=== PATIENT | male | born 1980 | race Caucasian/White ===

== ENCOUNTER 2019-01-26 05:58 | Emergency (ER) | payer OTHER ==
--- NOTE | 2019-01-26 06:20 | EDM.PDOC ---
<Samy Beltrán - Last Filed: 01/26/19 06:50> ED HPI GENERAL MEDICAL PROBLEM - General Chief Complaint: Abdominal Pain Stated Complaint: ABDOMINAL PAIN 3DAYS UNABLE TO KEEP DOWN FOOD Time Seen by Provider: 01/26/19 06:14 Source of Information: Reports: Patient History Limitations: Reports: No Limitations - History of Present Illness INITIAL COMMENTS - FREE TEXT/NARRATIVE: 38-year-old male presents the ED with a 3 day history of persistent left upper quadrant abdominal pain. States the pain is constant at a 3 out of 10. No associated fever chills. Nausea and vomiting starting 2 days ago. He states he still voiding fairly regular. K keep down water over the last 12 hours. No solids for over 3 days. Was lightheaded dizzy. Unable to sleep due to the discomfort of the pain. Pain does not radiate into his back. Not made worse by deep breathing. No previous abdominal surgery. Patient still is passing flatus per rectum. No bowel movement for the last 2 and half days. Emesis contained food products eaten initially and now is just bilious. He did take a lot of Pepto-Bismol heavily 15 mils every half hour 3 days ago with no relief. He has taken some Aleve with no relief in the last 12 hours. Onset: Sudden Onset Date: 01/23/19 Duration: Day(s): (3 days of illness.), Constant (Reports the pain is constant and not worse than it was when it came on.) Location: Reports: Abdomen (Left upper quadrant of the abdomen primarily.) Quality: Reports: Ache (Scribe is a deep dull aching pain without any colicky component. Occasional sharp stabbing pain.), Sharp, Stabbing Severity: Moderate (Occasional. 3 out of 10.) Improves with: Reports: None Worsens with: Reports: None Context: Denies: Activity, Exercise, Lifting, Sick Contact, Trauma, Other Associated Symptoms: Reports: Loss of Appetite, Malaise, Nausea/Vomiting, Weakness. 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 (Naprosyn with no relief.) Left Middle Abdomen Pain Score (Numeric/FACES): 3 - Related Data Allergies Allergy/AdvReac Type Severity Reaction Status Date / Time No Known Allergies Allergy Verified 01/26/19 06:04 Home Meds: Home Meds Lisinopril 5 mg PO DAILY 01/26/19 [History] Ondansetron [Zofran ODT] 1 tab PO Q8H PRN #10 tab.dis 01/26/19 [Rx] amLODIPine Besylate [Norvasc] 10 mg PO DAILY 01/26/19 [History] Past Medical History HEENT History: Reports: Impaired Vision Cardiovascular History: Reports: Hypertension Respiratory History: Reports: Pneumothorax Social & Family History - Tobacco Use Smoking Status *Q: Current Every Day Smoker Years of Tobacco use: 15 Packs/Tins Daily: 0.2 - Caffeine Use Caffeine Use: Reports: Coffee - Recreational Drug Use Recreational Drug Use: No - Living Situation & Occupation Occupation: Employed ED ROS GENERAL - Review of Systems Review Of Systems: See Below Constitutional: Reports: Malaise, Weakness, Fatigue (From not being able to sleep well the last 2 and half days.), Decreased Appetite (. To starting to be able to keep down some water the last 12 hours.). Denies: Fever, Chills HEENT: Reports: No Symptoms Respiratory: Reports: No Symptoms. Denies: Shortness of Breath, Wheezing, Pleuritic Chest Pain, Cough Cardiovascular: Reports: Blood Pressure Problem, Lightheadedness. Denies: Chest Pain, Claudication (Chronic hypertension.), Dyspnea on Exertion, Edema, Orthopnea, Palpitations Endocrine: Reports: Fatigue GI/Abdominal: Reports: Abdominal Pain (Persistent aching pain in his left upper quadrant abdomen makes it difficult to find a comfortable position. Pain is constant and nothing he has taken his seem to make any difference.), Constipation, Nausea (No bowel movement for the last 2-1/2 days.), Vomiting ( Nausea and vomiting for 2 days. Remains nauseated but has not vomited for the last 12 hours.) : Reports: No Symptoms Musculoskeletal: Reports: No Symptoms. Denies: Neck Pain, Shoulder Pain, Arm Pain, Back Pain Skin: Reports: No Symptoms Neurological: Reports: Dizziness, Weakness. Denies: Paresthesia, Pre-Existing Deficit, Seizure, Syncope, Trouble Speaking, Difficulty Walking, Change in Speech, Gait Disturbance Psychiatric: Denies: No Symptoms Hematologic/Lymphatic: Reports: No Symptoms Immunologic: Reports: No Symptoms ED EXAM, GI/ABD - Physical Exam Exam: See Below Exam Limited By: No Limitations General Appearance: Alert, WD/WN, No Apparent Distress, Other (Afebrile. Heart rate 82 and sinus respiratory of 18. He is hypertensive initially with a BP of 160 01/29/06. He states he doesn't think his blood pressure medicines of stay down the last 2 days.) Eyes: Bilateral: Normal Appearance (No scleral icterus.) Throat/Mouth: Normal Inspection (Tongue remains moist.), Normal Lips, Normal Oropharynx, Other Head: Atraumatic, Normocephalic Neck: Normal Inspection, Supple, Non-Tender, Full Range of Motion Respiratory/Chest: No Respiratory Distress, Lungs Clear, Normal Breath Sounds, No Accessory Muscle Use Cardiovascular: Normal Peripheral Pulses, Regular Rate, Rhythm, No Edema, No Gallop, No Murmur, No Rub GI/Abdominal Exam: Soft, Distended (Mild tympany upper abdomen. Pockets of air) , Tender (Mild tenderness on deep palpation left upper quadrant of the abdomen.) , Abnormal Bowel Sounds (Bowel sounds are hyperactive in all 4 quadrants with gurgling), Other (No surgical scars. Clinically has a benign abdomen with no peritoneal signs.). No: Normal Bowel Sounds, Guarding, Rigid, Rebound (Male) Exam: No Hernia ( lower abdomen.) Back Exam: Normal Inspection, Full Range of Motion. No: CVA Tenderness (L), CVA Tenderness (R) Extremities: Normal Inspection, Normal Range of Motion, Non-Tender Neurological: Alert, Oriented, CN II-XII Intact, Normal Cognition Psychiatric: Normal Affect, Normal Mood, Other Skin Exam: Warm, Dry, Intact, Normal Color, No Rash Course - Vital Signs Last Recorded V/S: Last Vital Signs Temp 36.1 C 01/26/19 06:05 Pulse 82 01/26/19 06:05 Resp 18 01/26/19 06:05 BP 167/106 H 01/26/19 06:05 Pulse Ox 97 01/26/19 06:05 Orthostatic Blood Pressure [ 137/82 Standing] Orthostatic Blood Pressure [ 146/94 Sitting] Orthostatic Blood Pressure [ 149/90 Supine] - Orders/Labs/Meds Orders: Active Orders 24 hr Category Date Time Status Orthostatic Vital Signs [RC] STAT Care 06/28/19 07:58 Active Abdomen 1V Flat [CR] Stat Exams 01/26/19 06:22 Taken Dextrose 5%-Lactated Ringers 1,000 ml Med 01/26/19 06:30 Active IV ASDIRECTED Medication Orders Dextrose/Lactated Ringer's (Dextrose 5%-Lactated Ringers) 1,000 mls @ 999 mls/ hr IV ASDIRECTED GUS Last Admin: 01/26/19 06:27 Dose: 999 mls/hr Labs: Laboratory Tests 01/26/19 01/26/19 01/26/19 Range/Units 06:24 06:25 06:25 WBC 8.97 (4.23-9.07) K/mm3 RBC 5.75 (4.63-6.08) M/mm3 Hgb 17.5 (13.7-17.5) gm/L Hct 51.3 H (40.1-51.0) % MCV 89.2 (79.0-92.2) fl MCH 30.4 (25.7-32.2) pg MCHC 34.1 (32.2-35.5) g/dl RDW Std Deviation 42.2 (35.1-43.9) fL Plt Count 322 (163-337) K/mm3 MPV 10.0 (9.4-12.3) fl Neutrophils % (Manual) 54 (40-60) % Band Neutrophils % 0 (0-10) % Lymphocytes % (Manual) 32 (20-40) % Atypical Lymphs % 0 % Monocytes % (Manual) 13 H (2-10) % Eosinophils % (Manual) 1 (0.8-7.0) % Basophils % (Manual) 0 L (0.2-1.2) Platelet Estimate Adequate RBC Morph Comment Normal Sodium 137 (136-145) mEq/L Potassium 4.2 (3.5-5.1) mEq/L Chloride 101 (98-107) mEq/L Carbon Dioxide 27 (21-32) mEq/L Anion Gap 13.2 (5-15) BUN 13 (7-18) mg/dL Creatinine 0.8 (0.7-1.3) mg/dL Est Cr Clr Drug Dosing 159.33 mL/min Estimated GFR (MDRD) > 60 (>60) mL/min BUN/Creatinine Ratio 16.3 (14-18) Glucose 108 H (74-106) mg/dL Lactic Acid (0.4-2.0) mmol/L Calcium 10.0 (8.5-10.1) mg/dL Total Bilirubin 0.4 (0.2-1.0) mg/dL AST 33 (15-37) U/L ALT 116 H (16-63) U/L Alkaline Phosphatase 94 (46-116) U/L C-Reactive Protein 0.3 (<1.0) mg/dL Total Protein 8.2 (6.4-8.2) g/dl Albumin 4.3 (3.4-5.0) g/dl Globulin 3.9 gm/dL Albumin/Globulin Ratio 1.1 (1-2) Lipase 161 (73-393) U/L Urine Color Yellow (Yellow) Urine Appearance Slt cloudy H (Clear) Urine pH 7.0 (5.0-8.0) Ur Specific Woodrow 1.020 (1.005-1.030) Urine Protein Trace H (Negative) Urine Glucose (UA) Negative (Negative) Urine Ketones Negative (Negative) Urine Occult Blood Negative (Negative) Urine Nitrite Negative (Negative) Urine Bilirubin Negative (Negative) Urine Urobilinogen 0.2 (0.2-1.0) Ur Leukocyte Esterase Negative (Negative) Urine RBC Not seen (0-5) /hpf Urine WBC Not seen (0-5) /hpf Ur Squamous Epith Cells Not seen (0-5) /hpf Urine Bacteria Few (FEW) /hpf Urine Mucus Not seen (FEW) /hpf Ketones (0.0-0.3) mM 01/26/19 01/26/19 Range/Units 06:25 06:54 WBC (4.23-9.07) K/mm3 RBC (4.63-6.08) M/mm3 Hgb (13.7-17.5) gm/L Hct (40.1-51.0) % MCV (79.0-92.2) fl MCH (25.7-32.2) pg MCHC (32.2-35.5) g/dl RDW Std Deviation (35.1-43.9) fL Plt Count (163-337) K/mm3 MPV (9.4-12.3) fl Neutrophils % (Manual) (40-60) % Band Neutrophils % (0-10) % Lymphocytes % (Manual) (20-40) % Atypical Lymphs % % Monocytes % (Manual) (2-10) % Eosinophils % (Manual) (0.8-7.0) % Basophils % (Manual) (0.2-1.2) Platelet Estimate RBC Morph Comment Sodium (136-145) mEq/L Potassium (3.5-5.1) mEq/L Chloride (98-107) mEq/L Carbon Dioxide (21-32) mEq/L Anion Gap (5-15) BUN (7-18) mg/dL Creatinine (0.7-1.3) mg/dL Est Cr Clr Drug Dosing mL/min Estimated GFR (MDRD) (>60) mL/min BUN/Creatinine Ratio (14-18) Glucose (74-106) mg/dL Lactic Acid 1.4 (0.4-2.0) mmol/L Calcium (8.5-10.1) mg/dL Total Bilirubin (0.2-1.0) mg/dL AST (15-37) U/L ALT (16-63) U/L Alkaline Phosphatase (46-116) U/L C-Reactive Protein (<1.0) mg/dL Total Protein (6.4-8.2) g/dl Albumin (3.4-5.0) g/dl Globulin gm/dL Albumin/Globulin Ratio (1-2) Lipase (73-393) U/L Urine Color (Yellow) Urine Appearance (Clear) Urine pH (5.0-8.0) Ur Specific Woodrow (1.005-1.030) Urine Protein (Negative) Urine Glucose (UA) (Negative) Urine Ketones (Negative) Urine Occult Blood (Negative) Urine Nitrite (Negative) Urine Bilirubin (Negative) Urine Urobilinogen (0.2-1.0) Ur Leukocyte Esterase (Negative) Urine RBC (0-5) /hpf Urine WBC (0-5) /hpf Ur Squamous Epith Cells (0-5) /hpf Urine Bacteria (FEW) /hpf Urine Mucus (FEW) /hpf Ketones 0.22 (0.0-0.3) mM Meds: Medications Generic Name Dose Route Start Last Admin Trade Name Freq PRN Reason Stop Dose Admin Dextrose/Lactated Ringer's 1,000 mls @ 999 mls/hr 01/26/19 06:30 01/26/19 06: 27 Dextrose 5%-Lactated Ringers IV 999 mls/hr ASDIRECTED GUS Administration Discontinued Medications Generic Name Dose Route Start Last Admin Trade Name Cuate PRN Reason Stop Dose Admin Hydromorphone HCl 0.5 mg 01/26/19 06:21 01/26/19 06:27 Dilaudid IVPUSH 01/26/19 06:22 0.5 mg ONETIME ONE Administration Metoclopramide HCl 10 mg 01/26/19 06:21 01/26/19 06:27 Reglan IVPUSH 01/26/19 06:22 10 mg ONETIME ONE Administration - Radiology Interpretation Free Text/Narrative:: 38-year-old male presents to the ED complaining of constant left upper quadrant abdominal pain not radiating into his back for the last 3 days. Associated onset of nausea and vomiting on the first day of illness and persisting up until 12 hours ago. Since then he's been able to keep down some clear fluids and water. He states pain is bad enough that it interferes with his sleep. States the pain is constant no colicky component. Occasional pain is sharp and stabbing however. Pain has remained the same and he grades at 3 out of 10 since onset 3 days ago. Emesis initially was food that he had eaten in the previous 12 hours. Subsequently emesis was bilious without blood. No bowel movement for about 2 and half days. Still passing flatus. Examination reveals very active bowel sounds in all 4 quadrants with tympanitic to percussion the upper abdomen particularly. He does feel mildly bloated. Clinically has a benign abdomen. Does not appear to be significantly volume depleted. No ketones on his breath. No genitourinary symptoms. Afebrile without any chills. Plan IV D5 Ringer's lactate at open. Given Dilaudid 0.5 mg IV with Reglan 10 mg IV. Routine labs including serum lipase and lactic acid to be done. One view of the abdomen to be done. - Re-Assessments/Exams Free Text/Narrative Re-Assessment/Exam: 01/26/19 06:50 KUB completed. Reveals increased stool throughout the transverse colon and splenic flexure. Scattered stool in the descending colon and plenty of stool in the rectal vault with surrounding air. No signs of any bowel obstruction. 01/26/19 06:59 care will be transferred to Dr. Martinez as it is change of shift. Are pending as is the full urinalysis. Departure - Departure Disposition: Home, Self-Care 01 Clinical Impression: Constipation - Discharge Information Referrals: PCP,None [Primary Care Provider] - Forms: ED Department Discharge Additional Instructions: You were seen in the emergency room for 3 days of persistent left upper abdominal pain, along with nausea and vomiting. Workup in the ER included blood work, positional blood pressure checks, and an abdominal x-ray. Your x-ray found a considerable amount of stool backed up in your transverse colon, as well as in your rectum. This is likely the cause of your symptoms. Your blood work was unremarkable. There is no sign of an infection, and you have not suffered any significant fluid or electrolyte abnormalities. As discussed, we recommend that you try some [id number] enemas to relieve yourself of your current constipation. Mineral oil enemas are probably best, but other options include saline and Phospho-Soda enemas. In addition to enemas, you may also want to try some oral magnesium citrate. If so, we would recommend that you drink only half a bottle, wait to see if it helps, before drinking the second half. We recommend that you STOP taking Pepto-Bismol. In order to prevent constipation in the future, we recommend that you take an oral bulk fiber, such as Metamucil, with plenty of water. If any other problems, please do not hesitate to return to the ER. - My Orders Last 24 Hours: My Active Orders 01/26/19 07:58 Orthostatic Vital Signs [RC] STAT - Assessment/Plan Last 24 Hours: My Active Orders 01/26/19 07:58 Orthostatic Vital Signs [RC] STAT <Mt Martinez - Last Filed: 01/26/19 08:35> Course - Re-Assessments/Exams Free Text/Narrative Re-Assessment/Exam: 01/26/19 08:[address] Beltrán. The 1 L of IV fluid that was ordered by Dr. Beltrán has finished infusing. I have the nurse check orthostatics, and the patient is not orthostatic. That does not mean that he is completely fluid replenished; he likely is not, however , additional IV fluid is not necessary. 01/26/19 08:18 The patient's CBC is remarkable for a hematocrit mildly elevated at 51.3, with the remainder of the CBC being normal. His CMP is remarkable for blood glucose slightly elevated at 108, and an ALT mildly elevated at 116, with the remainder of the CMP being normal. His lipase level is within normal limits at 161. His lactic acid level is within normal limits at 1.4. His CRP is within normal limits at 0.3. His ketones are within normal limits at 0.22. His urinalysis is completely normal. Based on his history, physical exam, blood work, and abdominal x-ray, the patient's left upper quadrant abdominal pain is most likely due to constipation. I'm going to recommend that he use some [id number] enemas to clean himself out. He could also try some magnesium citrate if he does not get complete relief. He should stop taking Pepto-Bismol. To prevent constipation in the future, he should start drinking bulk fiber, such as Metamucil, with plenty of water. 01/26/19 08:26 The above was discussed with the patient. I recommended mineral oil enemas +/- magnesium citrate. I will also prescribe Zofran ODT although the patient states that he has not been feeling nauseated this morning. Departure - Departure Time of Disposition: 08:27 Condition: Good - Discharge Information *PRESCRIPTION DRUG MONITORING PROGRAM REVIEWED*: Not Applicable *COPY OF PRESCRIPTION DRUG MONITORING REPORT IN PATIENT MARCELLO: Not Applicable
[2019-01-26] MEDS ORDERED: Metoclopramide 10 MG/2 ML SDV IVPUSH ONE (06:21)
[2019-01-26] MEDS ORDERED: HYDROmorphone 0.5 MG/0.5 ML Syringe IVPUSH ONE (06:21)
[2019-01-26] MEDS ORDERED: Dextrose 5%-Lactated Ringers 1,000 ML IV SCH (06:30)
--- NOTE | 2019-01-26 08:33 | CR ---
Abdomen: Supine view of the abdomen was obtained. Comparison: No previous abdominal x-ray. Joint space narrowing noted within both hips, worse on the left side. No acute bony abnormality is appreciated. No abnormal calcifications or soft tissue abnormality is seen. Bowel gas pattern appears within normal limits. Impression: 1. Joint space narrowing within both hips. 2. Nothing acute is identified on supine abdominal x-ray. Diagnostic code #2
== END 2019-01-26 08:43 | disposition home or self-care (01) ==
LOC: JD.ED 05:58
DX: K59.00 Constipation, unspecified (principal); I10 Essential (primary) hypertension; F17.210 Nicotine dependence, cigarettes, uncomplicated; Z79.899 Other long term (current) drug therapy
CPT/HCPCS: 36415; 74018; 80053; 81001; 82009; 83605; 83690; 85007; 85027; 86140; 96361; 96374; 96375; 99284; J1170; J2765; J7042